=== PATIENT | female | born 2000 | race Caucasian/White ===

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

== ENCOUNTER → 2022-12-26 | Outpatient (REF) | payer OTHER | LOC: M WUC 19:42 | PROVIDERS: ATTEND Physician Assistant | DX: R05.9 Cough, unspecified (principal) ==

== ENCOUNTER → 2023-01-04 | Outpatient (REF) | payer BC, OTHER | LOC: M WUC 19:48 | PROVIDERS: ATTEND Nurse Practitioner Family | DX: J03.90 Acute tonsillitis, unspecified (principal) ==